=== PATIENT | male | born 1965 | race Caucasian/White ===

== ENCOUNTER 2017-09-16 16:35 | Emergency (ER) | payer SELFPAY ==
[~2017-09-16] VITALS: Ht 177.8 cm; Wt 60.0 kg
[2017-09-16] MEDS ORDERED: KETOROLAC 60MG/2ML VIAL IM STA (17:51)
[2017-09-16 18:25] LABS: CLARITY URINE CLEAR (CLEAR); COLOR URINE DARK YELLOW (YELLOW); KETONES URINE TRACE (NEGATIVE); LEUKOCYTE ESTERASE URINE TRACE (NEGATIVE); NITRITE URINE NEGATIVE (NEGATIVE); OCCULT BLOOD URINE 3+ (NEGATIVE); PH URINE 5.5 (4.5-8.0); PROTEIN URINE 1+ (NEGATIVE); SPECIFIC GRAVITY URINE 1.023 (1.005-1.030)
[2017-09-16 18:41] LABS: EOSINOPHILS % 0.9 % (0.0-5.0); HEMATOCRIT. 38.8 % (42.0-52.0); HEMOGLOBIN. 13.3 g/dL (14.0-18.0); MEAN CORPUSCULAR HEMOGLOBIN 31.1 pg (28.0-32.0); MEAN CORPUSCULAR VOLUME 90.7 fL (80.0-94.0); MEAN PLATELET VOLUME 8.4 fl (7.4-10.4); MONOCYTES % 10.6 % (2.0-8.0); NEUTROPHILS % 73.5 % (40.0-76.0); PLATELET 257 x1000/uL (130-400); RED BLOOD CELL COUNT 4.28 mill/uL (4.7-6.1); RED CELL DISTRIBUTION WIDTH 14.4 % (11.6-14.6)
[2017-09-16 18:45] LABS: CHLORIDE 106 mEq/L (98-107)
[2017-09-16 19:25] VITALS: BP 132/74
== END 2017-09-16 19:30 | disposition home or self-care (01) ==
LOC: ER 16:35
DX: R10.32 Left lower quadrant pain (principal); N39.0 Urinary tract infection, site not specified; R31.9 Hematuria, unspecified
CPT/HCPCS: 36415; 80048; 81003; 85025; 96372; 99284; J1885